=== PATIENT | male | born 1980 | race Caucasian/White ===

== ENCOUNTER 2018-06-15 02:33 | Emergency (ER) | payer OTHER ==
[~2018-06-15 02:33] MED LIST: MELO-207 PO; PANT40TA65 PO
[2018-06-15 02:34] VITALS: BP 129/91
--- NOTE | 2018-06-15 02:36 | ER Report ---
History and Physical Time Seen By MD: 02:32 HPI/ROS CHIEF COMPLAINT: Long-Term clearance HISTORY OF PRESENT ILLNESS: 37-year-old male brought in by police for custodial clearance. Patient denies any complaints. Patient denies significant past medical history. Patient appears in no acute distress REVIEW OF SYSTEMS: Respiratory: No cough, no dyspnea. Cardiovascular: No chest pain, no palpitations. Gastrointestinal: No vomiting, no abdominal pain. Musculoskeletal: No back pain. Allergies: Coded Allergies: No Known Drug Allergies (Unverified , 06/15/18) Home Meds Active Scripts Pantoprazole Sodium (PANTOPRAZOLE SODIUM) 40 Mg Tablet.dr, 40 MG PO QDAY, #30 TAB.SR 3 Refills Prov:ADRIÁN GUNDERSON MD 05/10/18 Discontinued Scripts Meloxicam (MELOXICAM) 15 Mg Tablet, 15 MG PO QDAY PRN for pain, #30 TAB 3 Refills Prov:ADRIÁN GUNDERSON MD 05/10/18 Past Medical/Surgical History GERD, knee sprain Smoking Status: Never Smoker Constitutional Vital Sign - Last 24 Hours 06/15/18 02:34 Temp 98.4 Pulse 90 Resp 14 B/P (MAP) 129/91 Pulse Ox 92 O2 Delivery Room Air Physical Exam Vital signs stable, afebrile, pulse ox normal General Appearance: The patient is alert, has no immediate need for airway protection and no current signs of toxicity. No acute distress Eyes: Pupils equal and round no injection. Respiratory: Chest is non tender, lungs are clear to auscultation. Cardiac: regular rate and rhythm Gastrointestinal: Abdomen is soft and non tender, no masses, bowel sounds normal. Musculoskeletal: Neck: Neck is supple and non tender. Extremities have full range of motion and are non tender. Skin: No rashes or lesions. DIFFERENTIAL DIAGNOSIS: After history and physical exam differential diagnosis was considered for custodial clearance, alcohol intoxication, polysubstance abuse Medical Decision Making ED Course/Re-evaluation ED Course Patient was admitted to an examination room. H&P was done. The differential diagnoses was considered. On clinical examination. Patient voices no complaints. He has no findings on examination his vital signs are stable. Patient's medically cleared for custodial admission. Decision to Disposition Date: Jun 15, 2018 Decision to Disposition Time: 02:35 Depart Departure Latest Vital Signs Vital Signs Date Time Temp Pulse Resp B/P (MAP) Pulse Ox O2 Delivery O2 Flow Rate FiO2 06/15/18 02:34 98.4 90 14 129/91 92 Room Air Impression: Primary Impression: Medical clearance for incarceration Condition: Improved Disposition: [facility] TO HALFWAY/CORRECTIONAL F Referrals: ADRIÁN GUNDERSON MD (PCP) Patient Instructions: GENERAL ER DISCHARGE INSTRUCTIONS Additional Instructions: Medical cleared for custodial admission BARAK ZELAYA DO Jun 15, 2018 02:36
== END 2018-06-15 02:43 ==
LOC: ER 02:38
DX: F10.920 Alcohol use, unspecified with intoxication, uncomplicated (principal)
CPT/HCPCS: 99281